=== PATIENT | male | born 1970 | race Caucasian/White ===

== ENCOUNTER 2017-09-05 00:24 | Emergency (ER) | payer OTHER ==
[~2017-09-05] VITALS: Ht 175.3 cm; Wt 74.8 kg
--- NOTE | 2017-09-05 01:52 | ED GENERAL ADULT ---
History of Present Illness General Chief Complaint: ETOH/Drug Related Complaint Stated Complaint: SENT BY [facility] PER PT Source: patient Exam Limitations: no limitations Vital Signs & Intake/Output Vital Signs & Intake/Output Vital Signs Date Time Temp Pulse Resp B/P B/P Pulse O2 O2 Flow FiO2 Mean Ox Delivery Rate 09/05 1127 97.9 65 18 119/58 07/07 1107 97.9 65 18 119/58 99 Room Air 07/07 0933 97.5 76 18 119/62 07/07 0900 97.5 76 18 119/62 07/07 0833 97.5 76 18 119/62 98 Room Air 07/07 0645 97.6 92 18 112/76 07/07 0641 97.6 92 18 112/76 98 Room Air 07/07 0047 97.0 95 18 135/95 07/07 0047 97.0 95 18 135/95 98 Room Air Allergies Coded Allergies: Penicillins (TONGUE SWELLING 09/05/17) Triage Note: PT FROM HOME C/O ETHO DETOX, SENT IN BY [facility]. PT IS AN ALCOHOLIC SENT BY IN [facility] FOR MONITORING. PT STATES HE HAS BEEN DRINKING FOR 3 MONTHS, "NOT EVERY DAY". PT RECENTLY WENT ON A DRINKING [place] FOR 4 DAYS. PT DENIES HX OF WITHDRAWAL SEIZURE. PT STATES LAST DRINK WAS ON THURSDAY (VOKDA 1.5 PINTS). PTS VSS. Triage Nurses Notes Reviewed? yes Onset: Gradual Duration: hour(s): Timing: recent history Injury Environment: home Severity: moderate Modifying Factors: Improves With: rest. Associated Symptoms: tremors HPI: 46-year-old gentleman presents here from [facility] seeking symptomatically support for his alcohol detox. He states that he had been drinking heavily for several days prior to presentation to our watch. He states that during the day today his pulse was in the 130s he had some tremors. They had started him on some medications which he does not recall the name. He notes that he was beginning to feel better but that his pulse was 113 so they referred him to [facility] emergency department. He states that he has no suicidality or homicidality. He does not feel like he is having a seizure. He feels that the medications were beginning to work and hopes to return to [facility] in the morning. (Marisa POPE,Bairon Orr) Past History Travel History Traveled to [place] past 21 day No Medical History Any Pertinent Medical History? see below for history Neurological: NONE EENT: NONE Cardiovascular: hyperlipidemia Respiratory: NONE Gastrointestinal: NONE Hepatic: NONE Renal: NONE Musculoskeletal: NONE Psychiatric: anxiety Endocrine: NONE Surgical History Surgical History: non-contributory Psychosocial History What is your primary language Malay Tobacco Use: Current Daily Use Daily Tobacco Use Amount/Type: => 5 Cigarettes daily ETOH Use: alcoholic Illicit Drug Use: denies illicit drug use Family History Hx Contributory? No (Marisa POPE,Bairon Orr) Review of Systems Review of Systems Constitutional: Reports: no symptoms. EENTM: Reports: no symptoms. Respiratory: Reports: no symptoms. Cardiovascular: Reports: no symptoms. GI: Reports: no symptoms. Genitourinary: Reports: no symptoms. Musculoskeletal: Reports: no symptoms. Skin: Reports: no symptoms. Neurological/Psychological: Reports: no symptoms. Hematologic/Endocrine: Reports: no symptoms. Immunologic/Allergic: Reports: no symptoms. All Other Systems: Reviewed and Negative (Marisa POPE,Bairon Orr) Physical Exam Physical Exam General Appearance: anxious Comments: Review of Systems - except as otherwise noted in HPI Physical Exam Physical Exam General Appearance: well developed/nourished, no apparent distress Head: atraumatic, normal appearance Eyes: Bilateral: normal appearance. Ears, Nose, Throat: normal pharynx, normal ENT inspection Neck: normal inspection, supple, full range of motion Respiratory: normal breath sounds, chest non-tender, no respiratory distress, quiet respiration, lungs clear Cardiovascular: regular rate/rhythm Gastrointestinal: normal bowel sounds, soft, non-tender, no organomegaly Back: normal inspection, normal range of motion Extremities: normal inspection, normal capillary refill, normal range of motion, no edema Neurologic/Psych: no motor/sensory deficits, awake, alert, oriented x 3, mildly anxious, mild tremor Skin: intact, normal color, warm/dry Core Measures ACS in differential dx? No CVA/TIA Diagnosis: No Sepsis Present: No Sepsis Focused Exam Completed? No (Marisa POPE,Bairon Orr) Progress Differential Diagnoses I considered the following diagnoses in my evaluation of the patient: Alcoholism versus intoxication versus alcohol withdrawal syndrome Plan of Care: Orders Procedure Date/time Status Regular Diet 09/06 B Active CIWA 09/05 42 Active URINE DRUG SCREEN FOR ER ONLY 09/05 42 Complete ETHANOL 09/05 42 Complete COMPREHENSIVE METABOLIC PANEL 09/05 42 Complete CBC WITHOUT DIFFERENTIAL 09/05 42 Complete Laboratory Tests 09/05/17 0640: Urine Opiates Screen < 100, Methadone Screen < 40, Barbiturate Screen < 60, Ur Phencyclidine Scrn < 6.00, Amphetamines Screen < 100, U Benzodiazepines Scrn < 85, Urine Cocaine Screen < 50, Urine Cannabis Screen < 5.00 09/05/17 0204: Anion Gap 13, Estimated GFR > 60, BUN/Creatinine Ratio 21.0, Glucose 96, Calcium 9.5, Total Bilirubin 1.2, AST 69 H, ALT 83 H, Alkaline Phosphatase 96, Total Protein 7.0, Albumin 4.2, Globulin 2.8, Albumin/Globulin Ratio 1.5, CBC w Diff NO MAN DIFF REQ, RBC 5.11, MCV 91.1, MCH 31.2 H, MCHC 34.2, RDW 13.6, MPV 7.3 L, Gran % 59.2, Lymphocytes % 27.9, Monocytes % 8.3, Eosinophils % 3.9, Basophils % 0.7, Absolute Granulocytes 5.2, Absolute Lymphocytes 2.5, Absolute Monocytes 0.7 H, Absolute Eosinophils 0.3, Absolute Basophils 0.1, Serum Alcohol < 10.0 Diagnostic Imaging: Viewed by Me: Radiology Read. Discussed w/RAD: Radiology Read. Radiology Impression: Initial ED EKG: none Hand-Off Endorsed To: Flip Morse MD Endorsed Time: 0700 Pending: other ([facility] in am) (Bairon Cunningham MD) Departure Departure Disposition: HOME OR SELF CARE Condition: Stable Clinical Impression Primary Impression: Alcoholism Secondary Impressions: Alcohol withdrawal syndrome, Hypokalemia Referrals: Patient Has No Primary Care Dr (PCP/Family) Departure Forms: Customer Survey General Discharge Information (Bairon Cunningham MD) Critical Care Note Critical Care Note Critical Care Time: non-applicable (Bairon Cunningham MD)
[2017-09-05 02:15] LABS: ABSOLUTE BASOPHIL COUNT 0.1 /CUMM (0.0-0.2); ABSOLUTE EOSINOPHIL COUNT 0.3 /CUMM (0.0-0.7); ABSOLUTE GRANULOCYTE CT 5.2 /CUMM (1.4-6.5); ABSOLUTE LYMPH COUNT 2.5 /CUMM (1.2-3.4); ABSOLUTE MONOCYTE COUNT 0.7 /CUMM (0.10-0.60); BASOPHIL % 0.7 % (0.0-2.0); EOSINOPHIL % 3.9 % (0-5); GRANULOCYTE % 59.2 % (42.2-75.2); HEMATOCRIT 46.5 % (42-52); MEAN CORPUSCULAR HGB 31.2 PG (27.0-31.0); MEAN CORPUSCULAR HGB CONC 34.2 G/DL (33.0-37.0); MEAN CORPUSCULAR VOLUME 91.1 FL (80.0-94.0); MEAN PLATELET VOLUME 7.3 FL (7.4-10.4); PLATELET COUNT 256 /CUMM (130-400); RBC DISTRIBUTION WIDTH 13.6 % (11.5-14.5); RED BLOOD CELL CT 5.11 /CUMM (4.70-6.10); WHITE BLOOD CELL COUNT 8.8 /CUMM (4.8-10.8)
[2017-09-05 11:27] VITALS: BP 119/58
== END 2017-09-05 11:48 ==
LOC: ERH 00:24
PROVIDERS: Pediatrics
DX: F10.239 Alcohol dependence with withdrawal, unspecified (principal); E87.6 Hypokalemia
CPT/HCPCS: 80307; G0480